=== PATIENT | male | born 1980 | race African-American/Black ===

== ENCOUNTER 2017-11-17 13:33 | Emergency (ER) | payer SELFPAY ==
[~2017-11-17] VITALS: Ht 172.7 cm; Wt 114.3 kg
[2017-11-17 14:10] VITALS: BP 151/64
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
== END 2017-11-17 16:25 | disposition home or self-care (01) ==
LOC: ER 13:33 → MERGE 13:33 → ER 16:25
DX: M25.521 Pain in right elbow (principal); M25.531 Pain in right wrist
CPT/HCPCS: 73080; 73110; 99284

== ENCOUNTER 2019-01-04 09:46 | Emergency (ER) | payer SELFPAY ==
[~2019-01-04] VITALS: Ht 182.9 cm; Wt 114.3 kg
[2019-01-04 10:20] VITALS: BP 156/99
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
== END 2019-01-04 10:15 | disposition left against medical advice (07) ==
LOC: ER 09:46
DX: L97.529 Non-pressure chronic ulcer of other part of left foot with unspecified severity (principal); L97.519 Non-pressure chronic ulcer of other part of right foot with unspecified severity; Z90.89 Acquired absence of other organs
CPT/HCPCS: 99283